=== PATIENT | female | born 1950 ===

== ENCOUNTER 2020-02-02 11:29 | Inpatient (IN) | payer MEDICARE, MEDICAID, SELFPAY ==
[2020-02-02] VITALS (22 sets, daily range): BP systolic 75–122; BP diastolic 40–67; PULSE 59–127; RESP 8–24; TEMP 36.1–37.2; O2SAT 98–100; BMI 13.2
--- NOTE | 2020-02-02 11:39 | XR_ITS ---
WS: [id number] Portable AP upright chest, 02/02/2020 Clinical Data: AMS Comparison: AP and lateral chest, 01/24/2020 Findings: No nodules, masses or effusions are seen. The heart is normal. The pulmonary vascularity is not increased. No pneumonia or pneumothorax is seen. The aortic arch and descending aorta are tortuo us. The diaphragms are flattened. XR/XR chest 1V portable [id number] Impression: Atherosclerosis and hyperinflation.
--- NOTE | 2020-02-02 11:40 | ECG_ITS ---
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 Measurements Intervals [place]is Rate: 109 P: 45 VT: 125 QRS: 30 QRSD: 86 T: 53 QT: 337 QTc: 455 Interpretive Statements SINUS TACHYCARDIA ABNORMAL RHYTHM ECG INTERPRETATION BASED ON A DEFAULT AGE OF 40 YEARS No previous ECG available for comparison Electronically Signed On 02-02-2020 17:07:18 CDT by Dillan Niño M.D. [email or web address]
--- NOTE | 2020-02-02 11:41 | W.ED.AMS ---
HPI - Altered Mental Status General: Chief Complaint: General Medical Stated Complaint: ALTERED MENTAL STATUS Time Seen by Provider: 02/02/20 11:30 History of Present Illness: HPI narrative: This patient is a 69-year-old female presenting today with altered mental status and hypotension. She is a resident at [facility] and was brought in by ambulance today. Limited history reflects altered mental status for an unknown period of time. She was hypotensive for the EMS crew. They had difficulty starting an IV and did eventually get 1 however it infiltrated. She is on palliative care and is a DNR. 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 Also history of COPD, UTIs, metabolic encephalopathy. The patient is able to answer simple questions but is not able to provide a coherent history. Also of note to EMS noted that she was wearing 2 fentanyl patches. They removed 1 and cleaned the skin due to her hypotension but left the other in place due to concern to not cause her worsening of her pain. MD complaint: altered mental status, decreased responsiveness and weakness Onset (ago): unknown Severity: severe Review of Systems General: Reports: ROS unobtainable due to mental status [facility] ED PFSH: Medical History (Updated 02/02/20 @ 15:57 by Pierre Laurent MD) Anemia Bone metastasis Chronic pain Constipation History of tobacco use Hypercalcemia Protein calorie malnutrition Sacral decubitus ulcer, stage II Squamous cell carcinoma Physical Exam Const: EXAM LIMITATIONS: altered mental status GENERAL APPEARANCE: in distress, lethargic, ill appearing, frail appearing and appears older than stated age NUTRITIONAL APPEARANCE: cachectic ORIENTATION/CONSCIOUSNESS: Yes awake, Yes oriented to person and Yes lethargic HENMT: HEAD IMAGES: 1. Small area of ecchymosis Neck/C-Spine: COMMON NORMALS: no meningeal signs Chest: COMMONS NORMALS: normal inspection of the chest Resp: EFFORT & INSPECTION: Yes tachypneic and Yes uses accessory muscles AUSCULTATION: diminished lung sounds Cardio: COMMON NORMALS: regular rhythm JUGULAR VENOUS DISTENTION: no JVD PALPATION: normal PMI RATE: tachycardic RHYTHM: regular rhythm GI: COMMON NORMALS: Soft to palpation PALPATION: Yes Soft to palpation Neuro: VANNA COMA SCALE: document GCS findings Sims coma scale eye opening: To sound Sims coma scale verbal response: Confused Vanna coma scale motor response: Obey commands Sims coma scale total score: 13 SENSORIUM/ORIENTATION: Yes oriented to person and Yes lethargic MENINGEAL SIGNS: Yes no meningeal signs Skin: COMMON NORMALS: no rashes or lesions noted; negative for turgor normal GENERAL SKIN EXAM: no rashes or lesions noted and decreased turgor Course ED course: Patient quite significantly hypotensive through much of her stay. This improved with fluids but then dropped again. She came back anemic with a hemoglobin of 6 and a blood transfusion was ordered. She also has an elevated BUN at 49 with a creatinine of 1.4. She is reported to have heme positive stools at the fdc. Did not find any obvious source of infection however her procalcitonin was quite elevated suggesting a bacterial infection and antibiotics were given for broad coverage. She is on palliative care and is a DNR. She was agreeable to a transfusion. She also would be agreeable to an endoscopy if that was felt to be appropriate. She will be admitted tonight for transfusion and monitoring. Vital Signs: Vital signs: Vital Signs Temperature 98.5 F 02/02/20 21:24 Pulse Rate 105 H 02/02/20 21:24 Respiratory Rate 10 L 02/02/20 21:24 Blood Pressure 89/58 02/02/20 21:24 Pulse Oximetry 100 02/02/20 21:24 MDM - Altered Mental Status Lab Data: Labs: Lab Results 02/02/20 02/02/20 02/02/20 Range/Units 12:41 12:41 12:41 WBC 2.7 L (4.0-10.0) 10^3/ uL RBC 2.04 L (4.1-5.3) 10^6/u L Hgb 6.0 L* (11.5-15.3) g/dL Hct 20.1 L* (37.0-47.0) % MCV 98.5 (81-99) fL MCH 29.4 (28.0-34.0) pg MCHC 29.9 L (30.0-36.0) g/dL RDW 17.0 H (12.1-15.1) % Plt Count 186 (130-400) 10^3/c mm MPV 9.9 (7.4-10.4) fL Neut % (Auto) 87.7 % Lymph % (Auto) 5.2 % [place] % (Auto) 4.4 % Eos % (Auto) 1.9 % Baso % (Auto) 0.4 % Neut # (Auto) 2.37 (1.8-7.7) 10^3/u L Lymph # (Auto) 0.1 L (0.8-4.8) 10^3/u L [place] # (Auto) 0.1 L (0.2-0.9) 10^3/u L Eos # (Auto) 0.1 (0.0-0.8) 10^3/u L Baso # (Auto) 0.0 (0.0-0.1) 10^3/u L Nucleated RBC % (a uto) 0 % Nucleated RBCs # 0.0 /100WBC Sodium 133 L (136-145) mmol/L Potassium 3.7 (3.5-5.1) mmol/L Chloride 99 (98-107) mmol/L Carbon Dioxide 21 L (22-29) mmol/L Anion Gap 16.7 (5-19) BUN 49 H (8-23) mg/dL Creatinine 1.4 H (0.5-0.9) mg/dL GFR Calculation 37.4 L (90-130) mL/min Glucose 115 (65-115) mg/dL Calculated Osmolal ity 275 L (285-295) mOsm/k g Lactate 4.3 H* (0.5-2.2) mmol/L Calcium 6.2 L (8.5-10.5) mg/dL Magnesium 2.6 H (1.7-2.3) mg/dL Total Bilirubin 0.2 (0.15-1.2) mg/dL AST 125 H (0-32) U/L ALT 127 H (0-33) U/L Alkaline Phosphata se 40 (35-105) IU/L Troponin T Baselin e (0-10) ng/L Total Protein 4.2 L (6.6-8.7) g/dL Albumin 2.0 L (3.5-5.2) g/dL Globulin 2.2 (1.3-4.6) g/dL Lipase 159 H (13-60) U/L Procalcitonin 8.14 H (0-0.5) ng/mL Blood Type Rho(D) Type Antibody Screen Crossmatch 02/02/20 02/02/20 Range/Units 12:41 12:45 WBC (4.0-10.0) 10^3/ uL RBC (4.1-5.3) 10^6/u L Hgb (11.5-15.3) g/dL Hct (37.0-47.0) % MCV (81-99) fL MCH (28.0-34.0) pg MCHC (30.0-36.0) g/dL RDW (12.1-15.1) % Plt Count (130-400) 10^3/c mm MPV (7.4-10.4) fL Neut % (Auto) % Lymph % (Auto) % [place] % (Auto) % Eos % (Auto) % Baso % (Auto) % Neut # (Auto) (1.8-7.7) 10^3/u L Lymph # (Auto) (0.8-4.8) 10^3/u L [place] # (Auto) (0.2-0.9) 10^3/u L Eos # (Auto) (0.0-0.8) 10^3/u L Baso # (Auto) (0.0-0.1) 10^3/u L Nucleated RBC % (a uto) % Nucleated RBCs # /100WBC Sodium (136-145) mmol/L Potassium (3.5-5.1) mmol/L Chloride (98-107) mmol/L Carbon Dioxide (22-29) mmol/L Anion Gap (5-19) BUN (8-23) mg/dL Creatinine (0.5-0.9) mg/dL GFR Calculation (90-130) mL/min Glucose (65-115) mg/dL Calculated Osmolal ity (285-295) mOsm/k g Lactate (0.5-2.2) mmol/L Calcium (8.5-10.5) mg/dL Magnesium (1.7-2.3) mg/dL Total Bilirubin (0.15-1.2) mg/dL AST (0-32) U/L ALT (0-33) U/L Alkaline Phosphata se (35-105) IU/L Troponin T Baselin e 49 H (0-10) ng/L Total Protein (6.6-8.7) g/dL Albumin (3.5-5.2) g/dL Globulin (1.3-4.6) g/dL Lipase (13-60) U/L Procalcitonin (0-0.5) ng/mL Blood Type A Positive Rho(D) Type Positive Antibody Screen Negative Crossmatch See Detail EKG Data^: EKG 1: EKG interpretation date: 02/02/20 EKG interpretation time: 12:02 Interpretation: Sinus tachycardia with a rate of 109. Normal intervals and axis. 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
[2020-02-02] MEDS: sodium chloride 0.9% 1,000 ML 999 ML IV (12:08)
--- NOTE | 2020-02-02 12:41 | PC.NURSE ---
Updated Dr. Dunlap no urine output out of cath at this time. Will continue to monitor.
[2020-02-02 12:49] LABS: Basophils % 0.4 %; Eosinophils # 0.1 10^3/uL (0.0-0.8); Eosinophils % 1.9 %; Lymphocytes # 0.1 10^3/uL (0.8-4.8); Lymphocytes % 5.2 %; Mean Corpuscular HGB Conc 29.9 g/dL (30.0-36.0); Mean Corpuscular Hemoglobin 29.4 pg (28.0-34.0); Mean Corpuscular Volume 98.5 fL (81-99); Mean Platelet Volume 9.9 fL (7.4-10.4); Monocytes # 0.1 10^3/uL (0.2-0.9); Monocytes % 4.4 %; Neutrophils # 2.37 10^3/uL (1.8-7.7); Neutrophils % 87.7 %; Nucleated Red Blood Cells % 0 %; Platelet Count 186 10^3/cmm (130-400); Red Blood Count 2.04 10^6/uL (4.1-5.3); White Blood Count 2.7 10^3/uL (4.0-10.0)
[2020-02-02 13:08] LABS: Alanine Aminotransferase 127 U/L (0-33); Alkaline Phosphatase 40 IU/L (35-105); Anion Gap 16.7 (5-19); Aspartate Amino Transferase 125 U/L (0-32); Blood Urea Nitrogen 49 mg/dL (8-23); Calcium 6.2 mg/dL (8.5-10.5); Carbon Dioxide 21 mmol/L (22-29); Chloride 99 mmol/L (98-107); Creatinine Clr Calc Pharmacy 23.9597; Globulin 2.2 g/dL (1.3-4.6); Glomerular Filtration Rate 37.4 mL/min (90-130); Glucose 115 mg/dL (65-115); Lipase 159 U/L (13-60); Magnesium 2.6 mg/dL (1.7-2.3); Osmolality Calculated 275 mOsm/kg (285-295); Potassium 3.7 mmol/L (3.5-5.1); Sodium 133 mmol/L (136-145); Total Bilirubin 0.2 mg/dL (0.15-1.2); Total Protein 4.2 g/dL (6.6-8.7)
[2020-02-02 13:09] LABS: Troponin(5th) Baseline 49 ng/L (0-10)
[2020-02-02 13:12] LABS: Lactate (Lactic Acid level) 4.3 mmol/L (0.5-2.2)
[2020-02-02 13:27] LABS: Hematocrit 20.1 % (37.0-47.0); Slide Review Slide Review Perform
[2020-02-02 13:40] LABS: Procalcitonin 8.14 ng/mL (0-0.5)
--- NOTE | 2020-02-02 13:40 | ECG_ITS ---
[facility] Test Date: 2020-02-02 Pat Name: Rosa Hall Department: Room: Gender: Female Human Resource Internship: : 1950 Requested By: Kasia Ozuna Order Number: [id number] Saba MD: Dillan Niño M.D. Measurements Intervals Reading Rate: 114 P: 62 CO: 130 QRS: 22 QRSD: 77 T: 51 QT: 326 QTc: 450 Interpretive Statements SINUS TACHYCARDIA ABNORMAL RHYTHM ECG Compared to ECG 02/02/2020 11:58:52 No significant changes Electronically Signed On 02-02-2020 17:12:14 CDT by Dillan Niño M.D. [email or web address]
[2020-02-02] MEDS: pantoprazole 40 mg SDV IVP ×2 (13:48→17:42)
[2020-02-02] MEDS: pantoprazole 40 MG in sodium chloride 0.9% (plus) 100 ML 20 MG IV (13:57)
[2020-02-02] MEDS: piperacillin-tazobactam 3.375 GM in sodium chloride 0.9% (plus) 50 ML IV (14:40)
--- NOTE | 2020-02-02 15:11 | P.HP_ITS ---
Providers/Chief Complaint Admitting Physician: Pierre Laurent MD Chief Complaint: ALTERED MENTAL STATUS History of Present Illness Rosa Hall is a 69 year old female that was transferred from [facility] to [facility] secondary to lethargy and low blood pressure. From my understanding she had been admitted there the day previously from [facility]. Patient is sleepy and cannot give an adequate history. On calling her family, they relate that they have kept them for the most part out of the picture. From what I gather she has malignancy, likely squamous cell carcinoma that has metastasized to the bone. She received some radiation for this at [facility] in regards to her spine, and pelvis. From description she may have even had cauda equina. There is consideration for palliative treatment. The patient is DNR. The emergency department physician had discussed with the patient her expectations, and the patient wished to go ahead with a blood transfusion but did not want extremely aggressive care. The patient is somewhat sleepy and does not voice this to me. When I call her son, and [id number] they report that they are not fully aware of all of her health problems as she is kept these private, but they know she has incurable cancer and the wishes described above are likely what she would want. In the emergency department, her blood pressure was noted to be low and she received IV fluids. When hemoglobin was evaluated she was noted to be significantly anemic so blood transfusion was ordered. Review of Systems General: Reports: ROS unobtainable due to medical condition (Unable to obtain secondary to patient lethargy.) Medications/Allergies Home Medications Medication Instructions Recorded Confirmed Last Taken Type Iron Er 325 mg PO DAILY 02/02/20 02/02/20 02/01/20 History dexamethasone 4 mg PO Q12H 02/02/20 02/02/20 02/01/20 History diclofenac sodium 50 mg PO BID 02/02/20 02/02/20 02/01/20 History docusate sodium [Colace] 100 mg PO BID 02/02/20 02/02/20 Unknown History dronabinol 2.5 mg PO BID 02/02/20 02/02/20 02/01/20 History fentanyl See Rx Instructions .ROUTE .COMPLEX 02/02/20 02/02/20 Unknown History gabapentin 300 mg PO TID 02/02/20 02/02/20 02/01/20 History honey [MediHoney (honey)] See Rx Instructions .ROUTE .COMPLEX 02/02/20 02/02/20 Unknown History magnesium hydroxide [Milk of 30 ml PO DAILY PRN 02/02/20 02/02/20 Unknown History Magnesia] mirtazapine 7.5 mg PO DAILY 02/02/20 02/02/20 02/01/20 History multivitamin [Multiple Vitamins] 1 tab PO DAILY 02/02/20 02/02/20 02/01/20 History omeprazole 20 mg PO DAILY 02/02/20 02/02/20 02/01/20 History ondansetron HCl [Zofran] 4 mg PO Q6H PRN 02/02/20 02/02/20 02/01/20 History oxycodone 20 mg PO Q4H PRN 02/02/20 02/02/20 01/31/20 History polyethylene glycol 3350 [Miralax] 17 g PO DAILY 02/02/20 02/02/20 02/01/20 History Allergies Allergy/AdvReac Type Severity Reaction Status Date / Time baclofen Allergy Unknown Verified 02/02/20 12:42 latex Allergy Unknown Verified 02/02/20 12:42 PFSH Acute PFSH: Medical History (Updated 02/02/20 @ 15:57 by Pierre Laurent MD) Anemia Bone metastasis Chronic pain Constipation History of tobacco use Hypercalcemia Protein calorie malnutrition Sacral decubitus ulcer, stage II Squamous cell carcinoma Supplemental PFSH Information: Secondary to history constraints with this lethargic patient I was unable to obtain surgical history, family history or social history from any other source. I do know that she has used tobacco in the past. Vitals/I&O/Wt Last Vital Signs Temp 97.8 F 02/02/20 14:45 Pulse 113 H 02/02/20 14:57 Resp 22 H 02/02/20 14:57 BP 97/57 02/02/20 14:57 Pulse Ox 100 02/02/20 14:57 02/02/20 02/02/20 02/02/20 06:59 14:59 22:59 Intake Total 1000 / 1000 Balance 1000 / 1000 Weight last 48 hrs Weight 39.463 kg Physical Exam Narrative: EXAM NARRATIVE: General exam demonstrates a cachectic, lethargic white female who with any movement. Can answer a few limited questions but is obviously in pain pears HEENT. Oropharynx clear. Pupils equally round. Mucous membranes somewhat dry. Neck is supple no lymphadenopathy or thyromegaly Cardiovascular tachycardic, regular, no murmur Lungs clear no wheezing or crackles Abdomen is soft, tenderness is noted in the epigastric area. Positive bowel sounds. Back demonstrates stage II decubiti, 3, right lower back/gluteal area Extremities no cyanosis clubbing or edema, severe weakness noted Neurologic: Significant difficulty moving her lower extremities Skin see findings regarding decubiti Data : 02/02/20 12:41 02/02/20 12:41 Micro: Microbiology 02/02/20 12:45 Blood Culture - Preliminary Blood SPECIMEN COLLECTED 02/02/20 12:41 Blood Culture - Preliminary Blood SPECIMEN COLLECTED Other data: INR is pending Lactate elevated at 4.3 LFTs with elevation Troponin 49 Lipase 159 Procalcitonin 8 Chest x-ray without acute infiltrate Urinalysis pending A&P Assessment and plan (1) Lethargy: Humera secondary to anemia. Improved after hydration initiated. Status: Acute (2) Anemia: Etiology unknown. Cannot rule out blood loss Stool Hemoccult Protonix 40 mg IV every 12 hours Records requested from [facility]. From my understanding she was anemic there, had metastatic cancer to the bone. She may also received radiation. Status: Acute Additional A&P Information History of squamous cell carcinoma, with metastasis to the bone Chronic pain secondary to above Protein calorie malnutrition, secondary to malignancy History of hypercalcemia Constipation Stage II decubiti, sacrum/right gluteus History of tobacco use Allow natural Discussed with family possible transition to comfort measures in future. SCDs for DVT prophylaxis. 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 Fwd Diagnoses Lethargy R53.83 Anemia D64.9
[2020-02-02 15:46] LABS: INR 1.45 (0.8-1.2)
[2020-02-02] MEDS: dexamethasone 4 mg Tablet PO (17:41)
[2020-02-02] MEDS: dronabinol 2.5 mg Capsule PO (17:41)
[2020-02-02] MEDS: sodium chloride 0.9% 1,000 ML 75 ML IV (18:00)
[2020-02-02] MEDS: sodium chloride 0.9% (100 ml) 100 ML 150 ML (18:00)
[2020-02-02 19:32] LABS: ABG PH Result 7.39 (7.35-7.45); Arterial Blood Gas Hematocrit 29.4 % (37-47); Blood Gas Sample Site Brachial, right; Blood Gas Sample Type Arterial; HCO3 ABG 22.6 mmol/L (22-26); Oxygen Device NC
[2020-02-02 19:39] LABS: Troponin 5 6HR 53.98 ng/L (0-10); Troponin 5 6HR Delta 4.98 ng/L (0-12)
[2020-02-02 19:42] LABS: Add Urine Microscopic? YES; Bilirubin Urine Neg (NEGATIVE); Blood Urine 3+ (Negative); Glucose Urine UA Norm (Normal); Ketones Urine Negative (Negative); Leukocyte Esterase Urine Trace (Negative); Nitrate Urine Negative (Negative); Protein Urine Neg (Negative); Urine Appearance Hazy (CLEAR); Urine Color Yellow (Yellow); Urobilinogen Urine Norm (Negative); pH Urine 6 (5-7)
[2020-02-02 20:01] LABS: Add Urine Culture? Yes; Amorphous Sediment Urine 4+; Bacteria Urine 2+; RBC Urine 0-4 /hpf (0-2); Squamous Epithelial Cell Urine 0-4 (0-5); WBC Urine 0-4 /hpf (0-5)
[2020-02-02 23:02] LABS: Hematocrit 33.1 % (37.0-47.0); Hemoglobin 10.9 g/dL (11.5-15.3)
[2020-02-03] VITALS: PULSE 104; RESP 9; O2SAT 100
[2020-02-03] MEDS: pantoprazole 40 mg SDV IVP ×2 (03:27→18:05)
[2020-02-03 04:00] VITALS: BP 98/58; PULSE 113; RESP 14; TEMP 37.2; O2SAT 98
[2020-02-03 04:38] LABS: Basophils % 0.4 %; Eosinophils # 0.4 10^3/uL (0.0-0.8); Eosinophils % 4.8 %; Hematocrit 30.1 % (37.0-47.0); Hemoglobin 9.9 g/dL (11.5-15.3); Lymphocytes # 0.1 10^3/uL (0.8-4.8); Lymphocytes % 1.9 %; Mean Corpuscular HGB Conc 32.9 g/dL (30.0-36.0); Mean Corpuscular Hemoglobin 29.3 pg (28.0-34.0); Mean Corpuscular Volume 89.1 fL (81-99); Mean Platelet Volume 10.9 fL (7.4-10.4); Monocytes # 0.1 10^3/uL (0.2-0.9); Monocytes % 1.6 %; Neutrophils # 6.66 10^3/uL (1.8-7.7); Neutrophils % 90.9 %; Nucleated Red Blood Cells % 0.4 %; Platelet Count 151 10^3/cmm (130-400); Red Blood Count 3.38 10^6/uL (4.1-5.3); Red Cell Distribution Width 15.9 % (12.1-15.1); White Blood Count 7.3 10^3/uL (4.0-10.0)
[2020-02-03 04:54] LABS: Alanine Aminotransferase 121 U/L (0-33); Albumin Level 2.1 g/dL (3.5-5.2); Alkaline Phosphatase 56 IU/L (35-105); Anion Gap 15.4 (5-19); Aspartate Amino Transferase 58 U/L (0-32); Blood Urea Nitrogen 53 mg/dL (8-23); Calcium 6.1 mg/dL (8.5-10.5); Carbon Dioxide 22 mmol/L (22-29); Chloride 104 mmol/L (98-107); Globulin 3.1 g/dL (1.3-4.6); Glomerular Filtration Rate 22.2 mL/min (90-130); Glucose 87 mg/dL (65-115); Osmolality Calculated 282 mOsm/kg (285-295); Potassium 4.4 mmol/L (3.5-5.1); Sodium 137 mmol/L (136-145); Total Bilirubin 0.9 mg/dL (0.15-1.2); Total Protein 5.2 g/dL (6.6-8.7)
[2020-02-03 05:43] LABS: Slide Review Slide Review Perform
[2020-02-03 07:07] VITALS: BP 106/54; PULSE 100; RESP 14; TEMP 37.1; O2SAT 100
--- NOTE | 2020-02-03 08:13 | PM.PN ---
Subjective Subjective: Interval history: Rosa is more alert today. The nurse called me around 7 PM yesterday, reporting she was lethargic so her fentanyl patch was removed. She reports she is not in any discomfort, when she lays still. Medications: Reviewed: Yes Vitals/I&O/Wt Last Vital Signs Temp 98.7 F 02/03/20 07:07 Pulse 100 02/03/20 07:07 Resp 14 02/03/20 07:07 BP 106/54 02/03/20 07:07 Pulse Ox 100 02/03/20 07:07 02/02/20 02/03/20 02/03/20 22:59 06:59 14:59 Intake Total 750 / 1750 0 / 1750 Balance 750 / 1750 0 / 1750 Weight last 48 hrs Weight 39.463 kg Physical Exam Narrative: EXAM NARRATIVE: General exam conversive Cardiovascular tachycardic, regular, no murmur Lungs clear no wheezing or crackles Abdomen is soft, tenderness is noted in the epigastric area. Positive bowel sounds. Extremities no cyanosis clubbing or edema Data : 02/03/20 03:51 02/03/20 03:51 Micro: Microbiology 02/02/20 12:45 Blood Culture - Preliminary Blood SPECIMEN COLLECTED 02/02/20 12:41 Blood Culture - Preliminary Blood SPECIMEN COLLECTED A&P Assessment and plan (1) Lethargy: Multiple factors. Anemia, fentanyl. Significantly improved today. Status: Acute (2) Anemia: Etiology unknown. Cannot rule out blood loss Stool Hemoccults pending Continue Protonix Records reviewed from [facility]. Did have anemia there as well. Status: Acute Additional A&P Information Acute kidney injury. Continue fluids. Recheck BMP tomorrow. Check CK. Continue rodgers. History of squamous cell carcinoma, with metastasis to the bone Chronic pain secondary to above. Lethargic with fentanyl 75 mcg. Will change to 25 mcg today. Protein calorie malnutrition, secondary to malignancy History of hypercalcemia Constipation Stage II decubiti, sacrum/right gluteus History of tobacco use Allow natural Discussed with family possible transition to comfort measures in future. SCDs for DVT prophylaxis. 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
[2020-02-03 09:06] LABS: Creatine Phosphokinase 132 U/L (26-192)
--- NOTE | 2020-02-03 09:58 | PC.CHAP ---
Pastoral Care Encounter/Spiritual Assessment Type of Contact [] Declined regulatory analyst visit [] Patient/Family/Request visit [] Outpatient visit [] Follow-up visit [] Physician referral [] Code/Alert [x] Routine visit [] Staff referral [] Actively dying [] Patient sleeping [] Family support [] [] Out of room [] Palliative care [] [] Receiving care in room [] Pre-surgical visit [] Trauma [] Long length of stay [] ICU visit [] Other: Relational/Emotional Strength [] Patient feels connected with others/family/visitors/staff [] Distress [] Loneliness/isolation [] Abandonment Spirituality of Patient [] Person of Mignon [] Attends Jain of their Mignon [] Believes in Prayer [] Reads Bible or Church materials [] There are Spiritual issues to be addressed Awning Craftsman Interventions [x] Prayer [x] Active listening [x] Non-anxious presence [x] Spiritual/emotional support [] Crisis/trauma care [] Spiritual counseling [] Bereavement support [] Provided bereavement packet [] Provided Bible/devotional materials [] Provided toy/stuffed animal, coloring book to patient or family member [] Provided Communion [] Anointing/[place] [] Salvation [x] Completed spiritual assessment [] Other: Impact on Illness or Injury [] Angry [] Fearful [] Anxious [] Often cries [] Exhaustion [] Unable to work [] Unable to attend temple [] Unable to walk/stand [] Unable to read [] Unable to drive [] Unable to eat/drink [] Unable to sleep [] Unable to be with family [] Patient intubated [] Other: Summary Patient resting well Time spent with patient 5 min
--- NOTE | 2020-02-03 10:54 | US_ITS ---
WS: [id number] RENAL ULTRASOUND Urinary bladder ultrasound HISTORY: renal failure COMPARISON: CT 01/05/2020 TECHNIQUE: 2-D and color Doppler imaging of the kidney submitted. Right kidney: 9.6 cm x 5.1 cm x 5.0 cm. Normal echogenicity with no hydronephrosis or mass. Left kidney: 9.8 cm x 4.6 cm x 5.2 cm. Normal echogenicity with no hydronephrosis or mass. Aorta: Normal. Urinary Bladder: Nondistended due to Almanzar catheter. Small amount of fluid in the LEFT abdomen. US/US renal BI with bladder IMPRESSION: 1. No hydronephrosis or renal abnormality. 2. Urinary bladder nondistended due to Almanzar catheter.
[2020-02-03 11:46] VITALS: BP 106/63; PULSE 111; RESP 14; TEMP 37.1; O2SAT 94
[2020-02-03] MEDS: fentaNYL 25 mcg Patch 1 PATCH TRANSDERMA (13:06)
[2020-02-03] MEDS: sodium chloride 0.9% 1,000 ML 75 ML IV (13:07)
[2020-02-03 16:00] VITALS: BP 110/65; PULSE 112; RESP 16; TEMP 36.9; O2SAT 97
[2020-02-03] MEDS: dronabinol 2.5 mg Capsule PO (18:01)
[2020-02-03] MEDS: dexamethasone 4 mg Tablet PO (18:05)
[2020-02-03 20:00] VITALS: BP 112/70; PULSE 111; RESP 12; TEMP 36.8; O2SAT 98
[2020-02-04] VITALS: BP 123/72; PULSE 110; RESP 12; TEMP 36.7; O2SAT 98
[2020-02-04] MEDS: pantoprazole 40 mg SDV IVP (03:26)
[2020-02-04] MEDS: dexamethasone 4 mg Tablet PO (03:26)
[2020-02-04 04:00] VITALS: BP 122/66; PULSE 110; RESP 12; TEMP 36.7; O2SAT 98
[2020-02-04] MEDS: sodium chloride 0.9% 1,000 ML 75 ML IV (05:09)
[2020-02-04 06:00] LABS: Basophils % 0.3 %; Eosinophils % 0.3 %; Hematocrit 28.8 % (37.0-47.0); Hemoglobin 9.3 g/dL (11.5-15.3); Lymphocytes # 0.1 10^3/uL (0.8-4.8); Lymphocytes % 0.7 %; Mean Corpuscular HGB Conc 32.3 g/dL (30.0-36.0); Mean Corpuscular Volume 89.7 fL (81-99); Mean Platelet Volume 10.6 fL (7.4-10.4); Monocytes # 0.2 10^3/uL (0.2-0.9); Monocytes % 1.8 %; Neutrophils # 10.18 10^3/uL (1.8-7.7); Nucleated Red Blood Cells % 0 %; Platelet Count 143 10^3/cmm (130-400); Red Blood Count 3.21 10^6/uL (4.1-5.3); Red Cell Distribution Width 16.5 % (12.1-15.1); White Blood Count 10.6 10^3/uL (4.0-10.0)
[2020-02-04 06:28] LABS: Blood Urea Nitrogen 44 mg/dL (8-23); Calcium 6.1 mg/dL (8.5-10.5); Carbon Dioxide 19 mmol/L (22-29); Chloride 105 mmol/L (98-107); Glomerular Filtration Rate 40.7 mL/min (90-130); Glucose 114 mg/dL (65-115); Osmolality Calculated 279 mOsm/kg (285-295); Sodium 135 mmol/L (136-145)
[2020-02-04 07:35] VITALS: BP 122/70; PULSE 100; RESP 18; TEMP 36.6; O2SAT 93
[2020-02-04] MEDS: mirtazapine 15 mg Tablet 7.5 MG PO (08:36)
[2020-02-04] MEDS: dronabinol 2.5 mg Capsule PO (08:36)
[2020-02-04] MEDS: polyethylene glycol 3350 Pkt 17 gm PO (08:36)
[2020-02-04] MEDS: potassium chloride oral liq 20 mEq/15 mL UDC 40 MEQ PO (09:35)
--- NOTE | 2020-02-04 10:58 | P.PN_ITS ---
Subjective Subjective: Interval history: Rosa reports she feels okay. Pain is under control. Medications: Reviewed: Yes Vitals/I&O/Wt Last Vital Signs Temp 97.8 F 02/04/20 07:35 Pulse 100 02/04/20 07:35 Resp 18 02/04/20 07:35 BP 122/70 02/04/20 07:35 Pulse Ox 93 02/04/20 07:35 02/03/20 02/04/20 02/04/20 22:59 06:59 14:59 Intake Total 120 / 1480 1120 / 2600 0 / 0 Output Total 400 / 400 200 / 200 Balance 120 / 1480 720 / 2200 -200 / -200 Weight last 48 hrs Weight 39.463 kg Physical Exam Narrative: EXAM NARRATIVE: General exam conversive Cardiovascular tachycardic, regular, no murmur Lungs clear no wheezing or crackles Abdomen is soft, tenderness is noted in the epigastric area. Positive bowel sounds. Extremities no cyanosis clubbing or edema Data : 02/04/20 05:45 02/04/20 05:45 Micro: Microbiology 02/02/20 19:15 Urine Culture - Preliminary Urine,Clean Catch Enterococcus species 02/02/20 12:41 Blood Culture - Preliminary Blood NEGATIVE TO DATE 02/02/20 12:45 Blood Culture - Preliminary Blood NEGATIVE TO DATE A&P Assessment and plan (1) Lethargy: Multiple factors. Anemia, fentanyl. Appears to be at baseline. Status: Acute (2) Anemia: Etiology unknown. Cannot rule out blood loss Stool Hemoccults pending Continue Protonix Records reviewed from [facility]. Did have anemia there as well. Status: Acute Additional A&P Information Acute kidney injury. Improved Hypokalemia, supplement potassium Probable UTI, enterococcus. Discharged on ampicillin. History of squamous cell carcinoma, with metastasis to the bone Chronic pain secondary to above. Lethargic with fentanyl 75 mcg. Doing well on lower dose of fentanyl. Protein calorie malnutrition, secondary to malignancy History of hypercalcemia Constipation Stage II decubiti, sacrum/right gluteus History of tobacco use Allow natural Discussed with family possible transition to comfort measures in future. SCDs for DVT prophylaxis. Anticoagulation contraindicated secondary to severe anemia Ready for discharge today. 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
[2020-02-04 11:12] VITALS: BP 124/72; PULSE 87; RESP 22; TEMP 36.2; O2SAT 98
--- NOTE | 2020-02-04 11:50 | PM.DCS ---
Discharge Providers Date of Admission: 02/02/20 13:39 Date of Discharge: February 04, 2020 Attending Provider at Admission: Pierre Laurent MD Attending Provider at Discharge: Pierre Laurent MD Diagnoses at Discharge Discharge Diagnosis (1) Lethargy: Status: Acute Problem details: Resolved. Likely multiple cofactors. Anemia, medication. (2) Anemia: Status: Acute Problem details: Improved following transfusion Reason for Visit Reason for Visit: ALTERED MENTAL STATUS Hospital Course Hospital Course: Rosa is a 69-year-old white female with metastatic squamous cell cancer that presented to the hospital with lethargy. She was found to be significantly anemic with a hemoglobin of 6.0. No evidence of active GI bleeding was noted. Patient was started on Protonix. She also had had a fentanyl patch on that was removed. With transfusion, and removal of the fentanyl patch she became much more alert. She was monitored closely and on February 03 it was thought she would be stable to be discharged back to the nursing facility. At that time some acute kidney injury had improved, hemoglobin was stable at 9.3 and she was no longer lethargic. There was no evidence of active bleeding. She will follow-up with her primary care provider at [facility] in 3 days and get a CBC and BMP at that time. Urine reports growing enterococcus at time of discharge so she will be placed on ampicillin at discharge. Physical Exam Narrative: EXAM NARRATIVE: General exam no apparent distress Cardiovascular regular rate and rhythm without murmur Lungs clear Abdomen soft with positive bowel sounds Extremities no cyanosis clubbing or edema Discharge Data Data Completed and Pending: Completed Studies During Hospitalization Category Date Time Status XR chest 1V maggi ble [id number] Stat Exams 02/02/20 11:39 Completed US renal BI with bladder Routine Ultrasound 02/03/20 10:54 Completed Pending at discharge Category Date Time Status Blood Culture Sta t Lab 02/02/20 12:45 Results Immunochemical Fe belem OCB Routine Lab 02/02/20 15:56 Uncollected Urine Culture Sta t Lab 02/02/20 19:15 Results Labs from last 24 hours 02/04/20 02/04/20 05:45 05:45 WBC 10.6 H RBC 3.21 L Hgb 9.3 L Hct 28.8 L MCV 89.7 MCH 29.0 MCHC 32.3 RDW 16.5 H Plt Count 143 MPV 10.6 H Neut % (Auto) 96.0 Lymph % (Auto) 0.7 [place] % (Auto) 1.8 Eos % (Auto) 0.3 Baso % (Auto) 0.3 Neut # (Auto) 10.18 H Lymph # (Auto) 0.1 L [place] # (Auto) 0.2 Eos # (Auto) 0.0 Baso # (Auto) 0.0 Nucleated RBC % (a uto) 0 Nucleated RBCs # 0.0 Sodium 135 L Potassium 3.0 L Chloride 105 Carbon Dioxide 19 L Anion Gap 14.0 BUN 44 H Creatinine 1.3 H GFR Calculation 40.7 L Glucose 114 Calculated Osmolal ity 279 L Calcium 6.1 L Vitals: Last Vital Signs Temp 97.1 F L 02/04/20 11:12 Pulse 87 02/04/20 11:12 Resp 22 H 02/04/20 11:12 BP 124/72 02/04/20 11:12 Pulse Ox 98 02/04/20 11:12 Discharge Plan Discharge Patient Disposition: Home Condition: Stable Prescriptions: New fentanyl 25 mcg/hr Patch 72 Hour 1 patch transdermal Q72H Qty: 10 RF: 0 oxycodone 5 mg Tablet 5 mg PO Q4H PRN (Reason: Severe Pain) Qty: 20 RF: 0 pantoprazole [Protonix] 40 mg tablet,delayed release (DR/EC) 40 mg PO BID Qty: 60 RF: 0 Continued Multiple Vitamins Tablet 1 tab PO DAILY RF: 0 Miralax 17 gram Powder In Packet 17 g PO DAILY RF: 0 Zofran 4 mg Tablet 4 mg PO Q6H PRN (Reason: Nausea) RF: 0 dronabinol 2.5 mg Capsule 2.5 mg PO BID RF: 0 Milk of Magnesia 400 mg/5 mL Suspension 30 ml PO DAILY PRN (Reason: Constipation) RF: 0 dexamethasone 4 mg Tablet 4 mg PO Q12H RF: 0 Colace 100 mg Capsule 100 mg PO BID RF: 0 gabapentin 300 mg Capsule 300 mg PO TID RF: 0 mirtazapine 7.5 mg Tablet 7.5 mg PO DAILY RF: 0 MediHoney (honey) 80 % Gel See Rx Instructions .ROUTE .COMPLEX RF: 0 Iron Er 325 mg PO DAILY RF: 0 Discontinued omeprazole 20 mg Capsule,Delayed Release(Dr/Ec) 20 mg PO DAILY RF: 0 diclofenac sodium 50 mg Tablet,Delayed Release (Dr/Ec) 50 mg PO BID RF: 0 fentanyl 75 mcg/hr Patch 72 Hour See Rx Instructions .ROUTE .COMPLEX RF: 0 oxycodone 20 mg Tablet 20 mg PO Q4H PRN (Reason: Pain) RF: 0 Discharge Diet: Usual diet Discharge Activity: Increase activity as tolerated Activity Restrictions/Additional Instructions: [facility] CBC, BMP 3 to 5 days Discharge Attestations Time Spent in Discharge Care*: greater than 30 min Quality Metrics Clinical Quality Measures During this hospital stay, did patient experience: None Coding Level of Care Code Acute Food Safety Scientist for Chg Fwd Diagnoses Lethargy R53.83 Anemia D64.9
[2020-02-04] MEDS: potassium chloride ER 10 mEq Tablet 40 MEQ PO (12:18)
== END 2020-02-04 13:37 | disposition home or self-care (01) | DRG 812 ==
LOC: ER 12:01 → MEDSURG 13:55
PROVIDERS: Emergency Medicine; Admitting Provider Internal Medicine; Visit Provider Internal Medicine
DX: D64.9 Anemia, unspecified (principal); E46 Unspecified protein-calorie malnutrition; N17.9 Acute kidney failure, unspecified; Z68.1 Body mass index [BMI] 19.9 or less, adult; C79.51 Secondary malignant neoplasm of bone; Z66 Do not resuscitate; L89.152 Pressure ulcer of sacral region, stage 2; C80.1 Malignant (primary) neoplasm, unspecified
CPT/HCPCS: 12345; 36415; 36430; 36600; 71045; 76770; 76857; 80048; 80053; 81001; 81003; 82550; 82803; 83605; 83690; 83735; 84145; 84484; 85014; 85018; 85025; 85610; 86850; 86900; 86920; 87040; 87077; 87086; 87186; 93005; 96375; 99284; C9113; J2543; J7030; J8540; P9016; Q0167

== ENCOUNTER 2020-02-06 10:33 | Outpatient (CLI) | payer MEDICARE, SELFPAY ==
[2020-02-06 12:49] LABS: Basophils # 0.1 10^3/uL (0.0-0.1); Basophils % 0.4 %; Eosinophils # 0.1 10^3/uL (0.0-0.8); Eosinophils % 0.5 %; Hematocrit 35.5 % (37.0-47.0); Hemoglobin 11.1 g/dL (11.5-15.3); Lymphocytes # 0.1 10^3/uL (0.8-4.8); Lymphocytes % 0.7 %; Mean Corpuscular HGB Conc 31.3 g/dL (30.0-36.0); Mean Corpuscular Hemoglobin 28.8 pg (28.0-34.0); Mean Platelet Volume 10.8 fL (7.4-10.4); Monocytes # 0.5 10^3/uL (0.2-0.9); Monocytes % 3.7 %; Neutrophils % 93.7 %; Nucleated Red Blood Cells % 0 %; Platelet Count 168 10^3/cmm (130-400); Red Blood Count 3.86 10^6/uL (4.1-5.3); Red Cell Distribution Width 16.3 % (12.1-15.1); White Blood Count 12.4 10^3/uL (4.0-10.0)
[2020-02-06 13:27] LABS: Alanine Aminotransferase 58 U/L (0-33); Albumin Level 2.9 g/dL (3.5-5.2); Alkaline Phosphatase 90 IU/L (35-105); Anion Gap 17.1 (5-19); Aspartate Amino Transferase 22 U/L (0-32); Blood Urea Nitrogen 21 mg/dL (8-23); Calcium 6.4 mg/dL (8.5-10.5); Carbon Dioxide 22 mmol/L (22-29); Chloride 102 mmol/L (98-107); Globulin 3.7 g/dL (1.3-4.6); Glomerular Filtration Rate 122.7 mL/min (90-130); Glucose 103 mg/dL (65-115); Iron 30 ug/dL (37-145); Osmolality Calculated 283 mOsm/kg (285-295); Percent Saturation 24.1 % (20-50); Potassium 3.1 mmol/L (3.5-5.1); Sodium 138 mmol/L (136-145); Total Bilirubin 0.4 mg/dL (0.15-1.2); Total Iron Binding Capacity 124 mcg/dl; Total Protein 6.6 g/dL (6.6-8.7); Unsaturated Iron Binding 94 ug/dL (112-347)
[2020-02-06 13:31] LABS: Vitamin B12 > 2000 pg/mL (232-1245)
[2020-02-06 13:41] LABS: Ferritin 1382 ng/mL (15-150)
--- NOTE | 2020-02-06 17:56 | ONC CON_ITS ---
Dr. Waldrop New Patient Note Patient: Rosa Hall Unit #: [id number]: [id number] Dicatated By: Belle Waldrop M.D.Date of Visit: Feb 06, 2020 Onc MED New Patient/Consult Referring Physician: Dr. Luis Vigil History of Present Illness: Ms. 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 ENT evaluation showed no abnormality on head and neck exam, patient also underwent ROASTMASTER evaluation showed no cervical mass. Patient also had MRI scan of lumbar on December 30, 2019 which shows probable metastatic bone disease and a recent fracture of L5 and CT scan of abdomen pelvis done on January 02, 2020 showed there is evidence of left sacral fracture with erosion of cortical margin of left ilium at SI joint suggesting presence of soft tissue / metastatic disease and also showed multiple thoracic vertebral body compression fractures most likely chronic no definite acute fracture seen Radiation was consulted, as per patient she did receive radiation therapy to the left pelvis and lower back. Medical oncology was consulted systemic chemotherapy with full dose carboplatin/Taxol every 3 weeks was recommended and ordered for January 20, 2020 but patient said she did not get it.Patient was recently admitted to [facility] on February 02, 2020 with altered mental status changes and hypotension, she was hypotensive patient had 2 fentanyl patches on and initial lab work-up showed hemoglobin 6 g hematocrit 20.1 platelets 186,000, she was given 2 units of packed RBCs and she was discharged home on February 04, 2020. Today, patient is complaining of generalized weakness and fatigue but no melena or hematochezia except one episode of blood in her stool and once hematuria. On February 02, 2020 she had renal ultrasound which showed no hydronephrosis or renal abnormality and the urinary bladder was non-distended due to Rodgers's catheter. Patient denies any fever chills denies any nausea or vomiting denies any diarrhea or constipation, lower back pain is under control with current pain medication Past Medical History: Ms. Hall'helen medical history consists of anemia, diverticulitis, history of alcohol abuse, lumbar compression fracture, malnutrition, and tortuous colon. Past Surgical History: Ms. Hall'helen surgical/procedural history consists of colonoscopy - w/polypectomy, hysterectomy, tonsillectomy, and bone biopsy in 2019. Medications: Ampicillin 1 Capsule (of 500 mg) Oral four times a day, Bisacodyl 1 (10 mg) Suppository Rectal PRN, Colace 1 Capsule (of 100 mg) Oral b.i.d., Dexamethasone 1 Tablet (of 4 mg) Oral q 12 hours, Dronabinol 1 Capsule (of 2.5 mg) Oral b.i.d., Duragesic-25 1 Patch(es) (of 25 mcg/hr) Patch 72 Hr Transdermal q 72 hours, Enema Disposable 1 Enema Rectal PRN, Gabapentin 1 Capsule (of 300 mg) Oral t.i.d., Iron ER 1 Capsule Oral daily, Medihoney Ca Alginate 2 x2 1 (80% ) Gel (jelly) Topical daily, Milk of Magnesia 30 mL (of 400 mg/5mL) Suspension Oral daily PRN, MiraLax 1 (17 g) Pack Oral PRN, Mirtazapine 1 Tablet (of 7.5 mg) Oral daily, Multivitamin 1 Tablet Oral daily, oxyCODONE HCl 1 Capsule (of 5 mg) Oral q 4 hours PRN, Pantoprazole Sodium 1 Tablet (of 40 mg) Tablet, enteric coated Oral b.i.d., Senna-S 1 Tablet (of 8.6-50 mg) Oral b.i.d. PRN, Zofran ODT 1 Tablet (of 4 mg) Tablet Dispersable Oral q 6 hours PRN Allergies: Baclofen and Latex. Social History: Ms. Hall is and she is an unknown. She is a daily smoker who has smoked 1.0 pack/day for 40 years. She is a former drinker who had consumed 3 drinks/day 7 days/week. She has indicated exposure to the following products: cigarettes. pt states she quit one year ago . Family History: There is no documented family history. Review Of Symptoms: Constitutional - Appetite is poor and weight is decreasing. No fever, night sweats, or hot flashes. Energy level is poor, ENMT - No sinus congestion/drainage. No mouth sores. No sore throat or difficulty swallowing, Hematologic/Lymphatic - Positive for easy bruising, Respiratory - No shortness of breath. No cough. No pleuritic pain or hemoptysis, Cardiovascular - No angina pain. No palpitations, Gastrointestinal - No nausea or vomiting. No heartburn or acid reflux. No diarrhea or constipation. No blood in the stool or black stools, Genitourinary (F) - Pt has rodgers catheter, Musculoskeletal - Positive for back pain, Neurologic - No headache or dizziness. No numbness or tingling. No other focal neurologic symptoms, Psychiatric - No anxiety or depression. No insomnia. Vital Signs: Performed on Feb 06, 2020 11:11: 0, 15.91 (LOW), 1.34 sq.m, 62.00 in, 98 %, 89 /min, 24 /min, 133/73 mm(hg), 98.3 F (LOW), and 87.0 lbs (HIGH). Performance Status: 3 - Capable of only limited self-care, confined to bed or chair more than 50% of waking hours. (ECOG) Physical Examination: ENMT - No mouth sores, no thrush, Respiratory - Lungs are clear, Cardiovascular - Regular rate and rhythm of heart, Abdomen - Soft, bowel sounds present, Extremities - Trace edema bilateral. Lab/Imaging: Most recent lab results are not available for this patient. Impression: Metastatic squamous cell carcinoma involving left sacral ala confirmed by biopsy done on January 09, 2020 and left cervical lymphadenopathy confirmed with FNA on January 17, 2020 with negative ENT evaluation and ROASTMASTER evaluation for primaries done in [facility]. Status post radiation therapy to pelvis/lower back Plan: Discussed with patient about her disease status and treatment options, considering patient's poor performance status and incurable disease, treatment options including palliative therapy, or hospice care was discussed, patient wants to try palliative chemotherapy as long as she can tolerate and if time comes she will discuss about hospice care. Patient was offered full dose carboplatin/Taxol every 3-week basis but considering her overall poor performance status and continued to lose weight, she may not tolerate full dose chemotherapy and in that case, will consider weekly carboplatin/Taxol day 1, 8 and 15 repeat every 28 days. And also follow-up with next generation sequencing test ordered earlier in [place] to see if there is any possibility of targetable therapy or immunotherapy. We will consider Port-A-Cath placement to facilitate chemotherapy, all the side effects possible benefits associated with weekly carboplatin AUC 2 and Taxol 50 mg/m??? were discussed including bone marrow suppression, peripheral neuropathy, hair loss, nausea vomiting, constipation, allergic reaction especially to Taxol, hyperglycemia especially with steroids were mentioned, further teaching was done by chemotherapy nurse, will obtain approval from her insurance prior to the treatment. We will also consider monthly Xgeva to prevent skeletal related complications associated with bone mets. We will obtain CBC CMP and anemia work-up iron studies B12 folic acid level today and consider blood transfusion if hemoglobin less than 8 g. And otherwise she will return to clinic 1 week after chemotherapy is initiated Signed By: Belle Waldrop M.D. <<Signature on File>>
== END 2020-02-06 10:34 | disposition home or self-care (01) ==
LOC: ONCMED 10:59
PROVIDERS: PCP Family Medicine; Visit Provider Internal Medicine Hematology & Oncology
DX: C79.51 Secondary malignant neoplasm of bone (principal); C77.0 Secondary and unspecified malignant neoplasm of lymph nodes of head, face and neck; C80.1 Malignant (primary) neoplasm, unspecified; R53.1 Weakness; R53.83 Other fatigue; F17.210 Nicotine dependence, cigarettes, uncomplicated; Z92.3 Personal history of irradiation
CPT/HCPCS: 36415; 80053; 82607; 82728; 82746; 83540; 83550; 85025; 99203